=== PATIENT | female | born 1960 | race African-American/Black ===

== ENCOUNTER 2016-08-09 12:28 | Day surgery (SDC) | payer BC, MEDICARE ==
[2016-08-04 12:53] LABS: BASOPHILS 0.3 %; BASOPHILS ABSOLUTE 0.02 10/3/uL (0.0-0.16); EOSINOPHILS 3.6 %; EOSINOPHILS ABSOLUTE 0.22 10/3/uL (0.0-0.53); HEMATOCRIT 30.8 % (36.0-48.0); IMMATURE GRANULOCYTES 0.2 %; IMMATURE GRANULOCYTES ABSOLUTE 0.01 10/3/uL (0.0-0.11); LYMPHOCYTES 22.9 %; LYMPHOCYTES ABSOLUTE 1.41 10/3/uL (0.67-4.30); MEAN CORPUS HGB CONC 32.5 g/dL (32.0-36.0); MEAN CORPUSCULAR HEMOGLOB 25.3 pg (26.0-34.0); MEAN PLATELET VOLUME 9.5 fL (9.2-13.0); MONOCYTES 13.3 %; MONOCYTES ABSOLUTE 0.82 10/3/uL (0.21-1.20); NEUTROPHILS 59.7 %; NEUTROPHILS ABSOLUTE 3.67 10/3/uL (2.02-8.40); PLATELET COUNT 263 10/3/uL (150-400); RBC DISTRIBUTION WIDTH 15.9 % (12.0-16.0); RED CELL COUNT 3.95 10/6/uL (4.0-5.6); WHITE BLOOD CELLS 6.2 10/3/uL (4.5-10.5)
[2016-08-04 12:54] LABS: MANUAL DIFF NO %
[2016-08-04 13:11] LABS: BUN (BLOOD UREA NITROGEN) 46 MG/DL (6-23); CALCIUM, SERUM 9.8 MG/DL (8.5-10.4); CHLORIDE, SERUM 106 MMOL/L (96-112); CO2 (CARBON DIOXIDE) 20 MMOL/L (24-34); CREATININE 1.84 MG/DL (0.55-1.02); GFR AFRICAN AMERICAN 35 ML/MIN (>=60); GFR NON AFRICAN AMERICAN 30 ML/MIN (>=60); GLUCOSE, SERUM 129 MG/DL (60-99); POTASSIUM, SERUM 4.7 MMOL/L (3.5-5.3); SODIUM, SERUM 140 MMOL/L (135-148)
--- NOTE | ~2016-08-09 | OP ---
Record Of Operation [facility] [address] [place]. [address] NAME: CHILO CARR : 56 STATUS : REG [facility] PAT#: [id number] AGE: 55 ADM/REG DATE : 08/09/16 MR#: [id number] REPORT SERV DATE: 08/09/16 DICTATED BY: ANDI MORA DATE: 08/09/16 REPORT STATUS : Draft TRANSCRIBED BY: MODL DATE: 08/09/16 DATE OF PROCEDURE: 08/09/2016 SERVICE: Otolaryngology. PREOPERATIVE DIAGNOSIS: Chronic right maxillary ethmoid and frontal sinusitis. POSTOPERATIVE DIAGNOSIS: Chronic right maxillary ethmoid and frontal sinusitis. PROCEDURE: 1. Right endoscopic frontal sinusotomy. 2. Right endoscopic maxillary antrostomy. SURGEON: Andi Mora MD ANESTHESIA: General endotracheal anesthesia. ESTIMATED BLOOD LOSS: 5 mL. COMPLICATIONS: None. SPECIMENS: None. FINDINGS: I was able to dilate the patient widely and successfully in the frontal and maxillary sinuses. I used a 70 degree scope to look at the right maxillary sinus which is the most disease sinus on CT scan, and I irrigated it out with 120 mL of saline. Overall, the sinus looked healthier like it was recovering, I elected at that point not to do a formal maxillary antrostomy. The frontal sinus opened up very well. I was able to see with a 30 degree scope, all the way into the frontal sinus. There was no polyps or drainage there. Given the health of the other two sinuses, I elected not to do the ethmoidectomy today. My overall impression was that her sinus disease was recovering on its own and that further surgery would only delay healing and potentially set her up as an immunocompromised patient, I set her up for further infection. STATEMENT OF OPERATION: The patient was brought to the operating room in supine position, transferred over to the operating room table after pressure points were padded. General endotracheal anesthesia was established, the right side of the nose was prepared with cocaine soaked pledgets. The patient was then prepped and draped in the usual fashion. The [employer] image guidance fusion system was set up and calibrated and was functioning appropriately. The pledgets were removed. A 0 degree endoscope was introduced into the right nasal cavity. The middle turbinate was gently medialized with a [place] elevator. The uncinate process was well visualized as was the ari bullosa. Using a 30 degree scope, I could see the natural os of the maxillary sinus. At this time, there was no disease protruding out of it. In order to see better, but not to destroy the uncinate process, I elected to insert an Acclarent Relieva balloon into the sinus and do two dilations to 12 atmospheres for 3 seconds. This dilated the natural os sufficiently enough for me to see Record Of Operation [address] [place]. [address] NAME: CHILO CARR : 56 STATUS : REG [facility] PAT#: [id number] AGE: 55 ADM/REG DATE : 08/09/16 MR#: [id number] REPORT SERV DATE: 08/09/16 DICTATED BY: ANDI MORA DATE: 08/09/16 REPORT STATUS : Draft TRANSCRIBED BY: VARUN DATE: 08/09/16 with a 70 degree scope, into the sinus, I was able to see 70% of the sinus mucosa, I did not see any active purulent disease. I elected then irrigated out with a curved suction under direct visualization with approximately 120 mL of saline. Just on the outside chance there may be some disease in the frontal sinus I could not visualize. After doing this, I was satisfied that all the drainage that returned after the irrigation was clear. The patient had a disease in the frontal sinus recess area as well. I placed the Acclarent balloon into the frontal sinus and did three separate dilations to 12 atmospheres for 3 seconds each. Following my dilations, I looked with a 30 degree scope, and saw on a wide tract into the frontal sinus and it was widely patent. I then evaluated the ari bullosa or anterior ethmoids, I did not see any polypoid mucosa or any disease. I elected this time, since the other two sinuses were relatively healthy in appearance, that I would not do an endoscopic ethmoidectomy at this time. I did inject a small amount of 1% lidocaine with epinephrine approximately 2 mL into the lateral nasal wall into the root of the middle turbinate. Finally, I placed an Afrin-soaked pledget for a few minutes, I left it. There was no evidence of bleeding. Turned the patient back over to Anesthesia, where she awoke, was extubated, and transferred to the PACU in stable condition. PS/MODL Andi Mora MD / [id number] CC: MD Kyra Vanessa M.D.
[~2016-08-09 12:28] MED LIST: ALBUTEROL INH; ALPHAGAN P0.1 % OPH; APIDRA SC; ASA5GR PO; ASAB PO; ASABAYER PO; AVAPRO300 MG PO; AZOPT OPH; CAT1 PO; CAT2 PO; CHLORASEPTIC MT; COREG12 PO; COREG25 PO; COZAAR100 MG PO; CYCLOSPORINE PO; CYCLOSPORINE25 MG OR; CYCLOSPORINE25 MG PO; DSS PO; FLEX PO; FOSAMAX70 MG PO; GENGRAF25 MG PO; HALF81 PO; HCTZ25B PO; HUMALOG SC; HYDROCHLOROT25 MG PO; LANTUS SC; LEVAQUIN750 MG PO; LOPID6 PO; LOVAZA1 GM PO; LUMIGAN OPH; LUMIGAN2.5 ML OPH; MYFORTIC; MYFORTIC360 MG PO; NATURAL TEARS; NEORAL25 MG PO; NEUR300 PO; NIFEDIAC CC30 MG PO; NORCO1 TA2 PO; NORV10 PO; NOVOLOG SC; OS500+D PO; OXYCOD PO; P5 PO; PRILOSEC40 MG PO; PROAIR HFA INH; PROGRAF1 PO; PROVHFA INH; RECLAST IV; REG PO; SANDIMMUNE25 MG PO; SENTAB PO; TESS PO; VENTOLIN HFA PO; VICODINTAB PO; VITAMIN D1000 UNI1 PO; VITAMIN D400 UNI1 PO; VITD PO; Z100 PO; ZANAFLEX 4 MG TA4 MG PO; ZETIA PO; [UNRECOGNIZED DRUG - OTHER]; [UNRECOGNIZED DRUG - OTHER]; [UNRECOGNIZED DRUG - SUPPLY] EX
== END 2016-08-09 18:06 | disposition home or self-care (01) ==
LOC: SDC 12:28
PROVIDERS: Otolaryngology
PROC: 099S4ZZ Drainage of Right Frontal Sinus, Percutaneous Endoscopic Approach (ICD-10-PCS; 2016-08-09)
PROC: 099Q4ZZ Drainage of Right Maxillary Sinus, Percutaneous Endoscopic Approach (ICD-10-PCS; principal; 2016-08-09 13:30)
DX: J32.0 Chronic maxillary sinusitis (principal); J32.1 Chronic frontal sinusitis; J32.2 Chronic ethmoidal sinusitis; J45.909 Unspecified asthma, uncomplicated; E11.22 Type 2 diabetes mellitus with diabetic chronic kidney disease; I12.9 Hypertensive chronic kidney disease with stage 1 through stage 4 chronic kidney disease, or unspecified chronic kidney disease; N18.9 Chronic kidney disease, unspecified; Z88.8 Allergy status to other drugs, medicaments and biological substances; Z88.1 Allergy status to other antibiotic agents; Z98.41 Cataract extraction status, right eye; Z98.42 Cataract extraction status, left eye; Z96.1 Presence of intraocular lens; H40.9 Unspecified glaucoma; E11.319 Type 2 diabetes mellitus with unspecified diabetic retinopathy without macular edema; E78.00 Pure hypercholesterolemia, unspecified; I49.9 Cardiac arrhythmia, unspecified; M19.90 Unspecified osteoarthritis, unspecified site; M81.0 Age-related osteoporosis without current pathological fracture; K21.9 Gastro-esophageal reflux disease without esophagitis; K44.9 Diaphragmatic hernia without obstruction or gangrene; Z94.0 Kidney transplant status; Z90.710 Acquired absence of both cervix and uterus; Z98.890 Other specified postprocedural states; D64.9 Anemia, unspecified; Z94.83 Pancreas transplant status; Z90.49 Acquired absence of other specified parts of digestive tract; Z90.722 Acquired absence of ovaries, bilateral; Z90.79 Acquired absence of other genital organ(s); Z98.891 History of uterine scar from previous surgery; Z98.51 Tubal ligation status; Z98.1 Arthrodesis status
CPT/HCPCS: 80048; 82962; 85025; 93005; A9270-GY; C1726; J0690; J1720; J2250; J2405; J3010